=== PATIENT | male | born 1960 ===

== ENCOUNTER → 2017-07-22 | Emergency (ER) | payer OTHER ==
[~2017-07-22] MED LIST: Fentanyl 100 MCG/2 ML VIAL ONE; Ondansetron HCl/PF 4 MG/2 ML Vial ONE
[2017-07-22 11:59] LABS: INR-International Normal Ratio 1.2; PTT 24.7 SEC (22.9-36.1); Prothrombin Time 15.3 SEC (12.0-14.7)
[2017-07-22 12:03] LABS: #Basophils 0.1 thou/uL (0.0-0.2); #Lymphocytes 1.2 thou/uL (1.20-3.40); #Monocytes 0.4 thou/uL (0.11-0.59); #Neutrophils 2.6 thou/uL (1.40-6.50); %Basophils 1.5 % (0.0-1.0); %Eosinophils 0.7 % (0.0-10.0); %Monocytes 9.3 % (0.0-10.0); %Neutrophils 61.5 % (42.0-75.0); Hemoglobin 15.4 g/dL (14.0-18.0); Mean Corpuscular HGB CONC 36.9 g/dL (32.0-36.0); Mean Corpuscular Hemoglobin 33.8 pg (27.0-31.0); Mean Corpuscular Volume 91.5 fl (80.0-94.0); Mean Platelet Volume 7.9 fL (7.4-10.4); Platelet Count 72 thou/uL (130-400); RBC Distribution Width 12.5 % (11.5-14.5); Red Blood Cell (RBC) Count 4.55 mill/uL (4.70-6.10); White Blood Cell (WBC) Count 4.3 thou/uL (4.8-10.8)
[2017-07-22 12:14] LABS: ALT (SGPT) 61 U/L (8-55); AST (SGOT) 79 U/L (5-34); Albumin 2.9 g/dL (3.5-5.0); Alkaline Phosphatase 204 U/L (40-150); Anion Gap 15 mmol/L (10-20); BUN (Urea Nitrogen) 14 mg/dL (8.4-25.7); Bilirubin, Total 4.7 mg/dL (0.2-1.2); Calc. Creatinine Clearance 0 mL/min (70-130); Calcium 8.7 mg/dL (7.8-10.44); Carbon Dioxide 18 mmol/L (22-29); Chloride 107 mmol/L (98-107); Estimated GFR-MDRD Greater than 90; Globulin 4.9 g/dL (2.4-3.5); Glucose 177 mg/dL (70-105); Lipase 87 U/L (8-78); Potassium 3.8 mmol/L (3.5-5.1); Protein, Total 7.8 g/dL (6.0-8.3); Sodium 136 mmol/L (136-145)
[2017-07-22 12:18] LABS: CKMB 1.4 ng/mL (0-6.6); Troponin I 0.033 ng/mL (< 0.028)
[2017-07-22 13:07] LABS: PLT Morphology Comment Appears Decreased; RBC Morphology Normal
--- NOTE | 2017-07-22 13:32 | CT ---
HEAD CT NONCONTRAST: INDICATION: Altered mental status. COMPARISON: No prior comparison. FINDINGS: There is mild parenchymal volume loss. Ventricular system is within normal limits of normal. No in tracranial hemorrhage, mass effect, or midline shift. There is mild hypoattenuation of the cerebral white matter indicating mild chronic microvascular ischemic disease. The imaged paranasal sinuses are clear. IMPRESSION: 1. No acute intracranial hemorrhage or mass effect. 2. Findings are most consistent with mild chronic microvascular ischemic disease. POS: [facility]
--- NOTE | 2017-07-22 13:46 | RAD ---
PORTABLE CHEST: HISTORY: Abdominal pain. Chest pain. FINDINGS: The heart size is within normal limits. Mediastinal structures are unremarkable. The lungs are hollis ar of infiltrates. Old right clavicle fracture is noted. IMPRESSION: No active intrathoracic disease. POS: [facility]
== END ==
LOC: NAV ERS 10:52
DX: K72.90 Hepatic failure, unspecified without coma (principal); D69.6 Thrombocytopenia, unspecified; E11.9 Type 2 diabetes mellitus without complications; E78.5 Hyperlipidemia, unspecified; I10 Essential (primary) hypertension; F03.90 Unspecified dementia, unspecified severity, without behavioral disturbance, psychotic disturbance, mood disturbance, and anxiety; D50.9 Iron deficiency anemia, unspecified; Z79.4 Long term (current) use of insulin; Z79.84 Long term (current) use of oral hypoglycemic drugs; Z79.899 Other long term (current) drug therapy
CPT/HCPCS: 36415; 36416; 70450; 71010; 80053; 82140; 82553; 83605; 83690; 84484; 85025; 85610; 85730; 93005; 96374; 96375; J2405; J3010